=== PATIENT | male | born 1965 | race Caucasian/White ===

== ENCOUNTER 2016-11-03 15:52 | Inpatient (IN) | payer MEDICAID ==
[~2016-11-03] VITALS: Ht 167.6 cm; Wt 67.6 kg
[2016-11-03 17:36] LABS: Anion Gap 11 (5-15); BUN/Creatinine Ratio 18.9; Blood Urea Nitrogen 18 mg/dL (7-18); Carbon Dioxide 21 mmol/L (21-32); Chloride 109 mmol/L (98-107); GFR African American 108 mL/min; GFR Non-African American 89 mL/min; Glucose 99 mg/dL (74-106); Sodium 141 mmol/L (136-145)
[2016-11-03 17:47] LABS: Basophils # (auto) 0.1 uL; Basophils % (auto) 0.9 % (0.0-2.0); CONDITION Y; Eosinophils # (auto) 0.1 uL; Eosinophils % (auto) 1.4 % (0.0-7.0); Hematocrit 51.8 % (41.0-53.0); Hemoglobin 17.7 g/dL (13.5-17.5); Lymphocytes # (auto) 2.2 uL; Mean Corpuscular Hemoglobin 33.4 pg (28.0-32.0); Mean Corpuscular Hgb Conc. 34.2 g/dL (32.0-36.0); Mean Corpuscular Volume 97.4 fL (80.0-100.0); Mean Platelet Volume 8.2 fL (7.4-10.4); Monocytes # (auto) 0.6 uL; Neutrophils # (auto) 4.6 uL; Neutrophils % (auto) 60.7 % (37.0-80.0); Platelet Count (auto) 315 10^3/uL (140-450); Red Cell Distribution Width 13.6 % (11.6-16.0); White Blood Cell 7.6 10^3/uL (4.4-10.8)
[2016-11-03 17:53] LABS: Alkaline Phosphatase 56 U/L (45-117); Bilirubin, Total 1.1 mg/dL (0.2-1.0)
[2016-11-03 18:09] LABS: Aspartate Aminotransferase 43 U/L (15-37)
[2016-11-03] MEDS ORDERED: ASPirin 81 mg TAB PO ONE (18:45)
[2016-11-03] MEDS ORDERED: NITROGLYCERIN 0.2MG/HR TOPICAL PATCH TD ONE (18:45)
[2016-11-03] MEDS ORDERED: ENOXAPARIN SOD 80 MG/0.8ML SYRINGE SC ONE (18:45)
[2016-11-03] MEDS ORDERED: NITROGLYCERIN 0.4 MG SL TAB SL PRN (19:15)
[2016-11-03] MEDS ORDERED: MORPHINE SULFATE 4 MG/ML SYRG IV PRN ×2 (19:15)
[2016-11-03] MEDS ORDERED: TEMAZEPAM 15 MG CAP PO PRN (19:15)
[2016-11-03] MEDS ORDERED: PROMETHAZINE HCL 25 MG/ML 1ML IV PRN (19:15)
[2016-11-03] MEDS ORDERED: HYDROcodone-ACET 5/325MG TAB PO PRN (19:15)
[2016-11-03] MEDS ORDERED: LORazepam 0.5 MG TAB PO PRN (19:15)
[2016-11-03] MEDS ORDERED: ACETAMINOPHEN 500 MG TAB PO PRN (19:15)
[2016-11-03] MEDS ORDERED: LACTULOSE 20Gm/30ML SOLN PO PRN (19:15)
[2016-11-03] MEDS: SODIUM CHLORIDE 0.9% 1,000 ML IV SCH (19:36)
[2016-11-03 20:21] LABS: INR 1.05 (0.9-1.15); Partial Thromboplastin Time 27.8 sec (22.64-33.71); Prothrombin Time 11.4 sec (9.37-12.3)
[2016-11-03 21:38] LABS: B-Type Natriuretic Peptide 997.36 pg/mL (0-100)
[2016-11-03 21:44] LABS: Temperature: 21.9 C (20.0-25.0)
[2016-11-03] MEDS ORDERED: ATORVASTATIN 20 MG TAB PO SCH (22:00)
[2016-11-03] MEDS: METOPROLOL TARTRATE 25 MG TAB PO SCH (22:01)
[2016-11-03] MEDS: ENOXAPARIN SOD 60 MG/0.6 ML SYRINGE SC SCH (22:02)
[2016-11-04] VITALS (11 sets, daily range): BP systolic 82–138; BP diastolic 41–78
[2016-11-04 00:51] LABS: Basophils # (auto) 0.2 uL; Basophils % (auto) 3.3 % (0.0-2.0); DEFINITIVE SEE PRINTOUT; Eosinophils # (auto) 0.1 uL; Eosinophils % (auto) 1.7 % (0.0-7.0); Hematocrit 49.4 % (41.0-53.0); Hemoglobin 16.4 g/dL (13.5-17.5); Lymphocytes # (auto) 3.2 uL; Lymphocytes % (auto) 46.8 % (10.0-50.0); Mean Corpuscular Hemoglobin 32.1 pg (28.0-32.0); Mean Corpuscular Hgb Conc. 33.2 g/dL (32.0-36.0); Mean Corpuscular Volume 96.8 fL (80.0-100.0); Mean Platelet Volume 7.9 fL (7.4-10.4); Monocytes # (auto) 0.6 uL; Monocytes % (auto) 8.2 % (0.0-12.0); Neutrophils # (auto) 2.7 uL; Platelet Count (auto) 289 10^3/uL (140-450); Red Cell Distribution Width 12.6 % (11.6-16.0); White Blood Cell 6.8 10^3/uL (4.4-10.8)
[2016-11-04 01:31] LABS: Urine Bilirubin Negative (Negative); Urine Blood Negative /uL (Negative); Urine Color Yellow (Yellow); Urine Glucose Normal (Normal); Urine Ketone Negative (Negative); Urine Mucus FEW (None Seen); Urine Nitrite Negative (Negative); Urine RBC 1 /hpf (0 - 3); Urine Squamous Epithelial Cell FEW /hpf (<5); Urine pH 6.5 (5.0-8.0)
[2016-11-04] MEDS: SODIUM CHLORIDE 0.9% 1,000 ML IV SCH (05:38)
[2016-11-04 06:48] LABS: Albumin 2.6 g/dL (3.4-5.0); BUN/Creatinine Ratio 19.8; Bilirubin, Total 1.2 mg/dL (0.2-1.0); Calcium 7.4 mg/dL (8.5-10.1)
[2016-11-04 06:52] LABS: Potassium 4.1 mmol/L (3.5-5.1)
[2016-11-04] MEDS: ENOXAPARIN SOD 60 MG/0.6 ML SYRINGE SC SCH (09:50)
[2016-11-04] MEDS ORDERED: ASPirin 81 mg TAB PO SCH (10:00)
[2016-11-04] MEDS: METOPROLOL TARTRATE 25 MG TAB PO SCH (10:00)
[2016-11-04] MEDS ORDERED: NITROGLYCERIN 0.2MG/HR TOPICAL PATCH TD SCH (10:00)
[2016-11-04] MEDS ORDERED: LORazepam 2MG/ML-1ML VIAL IV PRN (13:45)
[2016-11-04] MEDS ORDERED: CLOPIDOGREL BISULFATE 75 MG TAB PO ONE (13:45)
[2016-11-04] MEDS ORDERED: ATORVASTATIN 20 MG TAB PO SCH (22:00)
[2016-11-06 11:53] LABS: Temperature: 22.7 C (20.0-25.0)
== END 2016-11-04 16:13 | disposition left against medical advice (07) | DRG 190 ==
LOC: EDBD 15:52 → ER 15:53 → TELE 15:54
PROVIDERS: ADMIT Internal Medicine; ATTEND Internal Medicine
DX: I21.4 Non-ST elevation (NSTEMI) myocardial infarction (principal); I42.9 Cardiomyopathy, unspecified; I50.9 Heart failure, unspecified; I11.0 Hypertensive heart disease with heart failure; F19.10 Other psychoactive substance abuse, uncomplicated; F17.210 Nicotine dependence, cigarettes, uncomplicated; Z79.02 Long term (current) use of antithrombotics/antiplatelets; Z79.899 Other long term (current) drug therapy; Z82.3 Family history of stroke; Z86.73 Personal history of transient ischemic attack (TIA), and cerebral infarction without residual deficits
CPT/HCPCS: 36415; 70450; 71010; 80053; 80061; 80307; 80320; 81001; 82550; 82607; 82746; 83735; 83880; 84443; 84484; 85025; 85379; 85610; 85652; 85730; 87081; 93005; 93306; 93886; 96372